=== PATIENT | male | born 1965 | race American Indian/Alaskan Native ===

== ENCOUNTER 2019-08-04 07:40 | Emergency (ER) | payer BC, MEDICAID, OTHER ==
[2019-08-04] MEDS ORDERED: MORPHINE 4 MG/1 ML INJ IV ONE (07:59)
[2019-08-04] MEDS ORDERED: SODIUM CHLORIDE 0.9% 1000 ML 1,000 ML IV ONE (07:59)
--- NOTE | 2019-08-04 08:00 | Emergency Department Report ---
HPI - General Chief Complaint: Abdominal Pain Time Seen by Provider: 08/04/19 07:54 - HPI HPI: 53-year-old -[place] male presents to the emergency department via EMS from home with complaint of lower abdominal pain, lower back pain, rectal bleeding that started about 10 PM last night. He says it is bright red blood. He tried a Percocet for her symptoms last night without much relief. He has a past medical history of hypertension and HIV. No recent travel or sick contacts at home. He denies any fever, chest pain, shortness of breath, diarrhea, constipation. ED Past Medical Hx - Past Medical History Previous Medical History?: Yes Hx Hypertension: Yes Hx HIV: Yes Additional medical history: MVP - Surgical History Past Surgical History?: No - Social History Smoking Status: Unknown if ever smoked Substance Use Type: None - Medications Home Medications: Home Medications Medication Instructions Recorded Confirmed Last Taken Type Amoxicillin/K Clav Tab [Augmentin 1 each PO ONCE #14 tablet 08/04/19 Unknown Rx 875MG TAB] ED Review of Systems ROS: Stated complaint: ABD/BACK PAIN RECTAL BLEEDING Other details as noted in HPI Comment: All other systems reviewed and negative Constitutional: denies: chills, fever Eyes: denies: eye pain, vision change ENT: denies: ear pain, throat pain Respiratory: denies: cough, shortness of breath Cardiovascular: denies: chest pain, palpitations Gastrointestinal: abdominal pain, hematochezia Genitourinary: denies: dysuria, discharge Musculoskeletal: back pain. denies: arthralgia Skin: denies: rash, lesions Neurological: denies: numbness, paresthesias Physical Exam - Physical Exam Vital Signs: Vital Signs 08/04/19 07:47 Temperature 98.4 F Pulse Rate 118 H Respiratory 20 Rate Blood Pressure 152/88 O2 Sat by Pulse 98 Oximetry Physical Exam: GENERAL: The patient is well-developed well-nourished. HENT: Normocephalic. Atraumatic. Patient has moist mucous membranes. EYES: Extraocular motions are intact. NECK: Supple. Trachea is midline. CHEST/LUNGS: Clear to auscultation. There is no respiratory distress noted. HEART/CARDIOVASCULAR: Regular. There is no tachycardia. ABDOMEN: Abdomen is soft. There is lower abdominal tenderness to palpation. No guarding. Patient has normal bowel sounds. There is no abdominal distention. SKIN: Skin is warm and dry. NEURO: The patient is awake, alert, and oriented. The patient is cooperative. Normal speech. MUSCULOSKELETAL: There is no tenderness or deformity. There is no limitation range of motion. There is no evidence of acute injury. BACK: No midline thoracic or lumbar tenderness to palpation, step-off or deformity. ED Course Vital Signs 08/04/19 07:47 Temperature 98.4 F Pulse Rate 118 H Respiratory 20 Rate Blood Pressure 152/88 O2 Sat by Pulse 98 Oximetry ED Medical Decision Making - Lab Data Result diagrams: 08/04/19 08:19 08/04/19 08:19 - Radiology Data Radiology results: report reviewed, image reviewed interpreted by me: Abdominal x-ray shows some air-fluid levels. CT abdomen pelvis w con INDICATION: Abd pain, rectal bleeding. TECHNIQUE: All CT scans at this location are performed using CT dose reduction for ALARA by means of automated exposure control. COMPARISON: None available. FINDINGS: Lung bases are clear of acute disease. Liver, gallbladder, spleen, pancreas and kidneys are negative. Both adrenals appear slightly hyperplastic, with no adrenal nodules. Abdominal aorta is normal in size. No adenopathy. Pelvis Normal appendix. Urinary bladder and distal ureters are negative. The rectum, sigmoid and descending colon are thick-walled and edematous, suggesting colitis. Right and transverse colon are unremarkable. No free fluid. No significant skeletal lesions. IMPRESSION: 1. Findings are consistent with distal colitis, extending from just past the splenic flexure to the distal rectum. Etiology is not known. - Medical Decision Making This patient presents to the emergency department with complaint of some lower abdominal pain, low back pain and some rectal bleeding since last night. His abdomen has some mild tenderness to palpation to the lower quadrants but otherwise the abdomen is nondistended, soft, and nontoxic in appearance. Abdominal x-ray shows some air-fluid levels. Labs have been mostly unremarkable except for some mild hypokalemia that was replaced with potassium chloride. CT scan of the abdomen pelvis with IV contrast shows distal colitis. Patient will be placed on Augmentin and has been given referrals for gastroenterology for outpatient follow-up regarding the abdominal pain and rectal bleeding. He will return to the emergency department with any worsening of his symptoms or any acute distress. Critical Care Time: No Critical care attestation.: If time is entered above; I have spent that time in minutes in the direct care of this critically ill patient, excluding procedure time. ED Disposition Clinical Impression: Colitis, Rectal bleeding Abdominal pain Qualifiers: Abdominal location: lower abdomen, unspecified Qualified Code(s): R10.30 - Lower abdominal pain, unspecified Disposition: TO HOME OR SELFCARE Is pt being admited?: No Condition: Stable Instructions: Rectal Bleeding (ED), Infectious Colitis (ED) Additional Instructions: Please follow-up with your primary care physician in the next few days. I have given you a referral for a local supervisor publications, Dr. Jamil Weeks, who is also part of a large gastroenterology group called [facility]. Please follow-up with someone from [facility] regarding your rec agnes bleeding as you may need a colonoscopy sometime in the near future. Return to the emergency department with any worsening of your symptoms or any acute distress. Take the antibiotics as prescribed. Prescriptions: Amoxicillin/K Clav Tab [Augmentin 875MG TAB] 1 each PO ONCE #14 tablet Referrals: DAVID WEEKS MD [Staff Physician] - 2-3 Days Forms: Work/School Release Form(ED) Time of Disposition: 10:18
--- NOTE | 2019-08-04 08:19 | XRay Report ---
ABDOMEN 2 VIEW(S) INDICATION / CLINICAL INFORMATION: Abd pain. COMPARISON: None available. FINDINGS: TUBES / LINES: None. BOWEL GAS PATTERN: No significant abnormality. FREE AIR / EXTRALUMINAL GAS: None seen. ADDITIONAL FINDINGS: No significant additional findings. IMPRESSION: No significant abnormality. Signer Name: Len Smith Jr, MD Signed: 08/04/2019 8:14 AM Workstation Name: [id number]
[2019-08-04 08:33] LABS: Hematocrit 45.7 % (35.5-45.6); Mean Corpuscular HGB Conc 35 % (32-34); Mean Corpuscular Volume 91 fl (84-94); Platelet Count 177 K/mm3 (140-440); Red Cell Distribution Width 13.6 % (13.2-15.2)
[2019-08-04 08:44] LABS: INR 1.03 (0.87-1.13)
[2019-08-04 09:24] LABS: Alanine Aminotransferase 18 units/L (7-56); Albumin 4.2 g/dL (3.9-5); BUN/Creatinine Ratio 14; Blood Urea Nitrogen 15 mg/dL (9-20); Hemolysis Index 18
[2019-08-04] MEDS ORDERED: POTASSIUM CHLORIDE ER 10 MEQ TAB PO NR (09:26)
[2019-08-04 09:37] LABS: Bilirubin,Direct < 0.2 mg/dL (0-0.2)
--- NOTE | 2019-08-04 10:11 | Cat Scan Report ---
CT abdomen pelvis w con INDICATION: Abd pain, rectal bleeding. TECHNIQUE: All CT scans at this location are performed using CT dose reduction for ALARA by means of automated e xposure control. COMPARISON: None available. FINDINGS: Lung bases are clear of acute disease. Liver, gallbladder, spleen, pancreas and kidneys are negative. Both adrenals appear slightly hyperplastic, with no adrenal nodules. Abdominal aorta is normal in si ze. No adenopathy. Pelvis Normal appendix. Urinary bladder and distal ureters are negative. The rectum, sigmoid and descending colon are thick-walled and edematous, suggesting colitis. Right an d transverse colon are unremarkable. No free fluid. No significant skeletal lesions. IMPRESSION: 1. Findings are consistent with distal colitis, extending from just past the splenic flexure to the d istal rectum. Etiology is not known. Signer Name: John Faith MD Signed: 08/04/2019 10:07 AM Workstation Name: [id number]
[2019-08-04] MEDS ORDERED: AMOXICILLIN/K CLAV 875/125MG TAB PO ONE (10:13)
[2019-08-04 10:59] VITALS: BP 150/86
[2019-08-04 11:11] LABS: Band Neutrophils # (Manual) 1.7 K/mm3; Basophils % (Manual) 0 % (0.0-1.8); Eosinophils % (Manual) 0 % (0.0-4.3); Platelet Estimate Consistent w Auto; RBC Morphology Normal; Total Cells Counted 100
== END 2019-08-04 11:02 | disposition home or self-care (01) ==
LOC: ED 07:40
DX: K52.9 Noninfective gastroenteritis and colitis, unspecified (principal); I10 Essential (primary) hypertension
CPT/HCPCS: 36415; 74019; 74177; 80048; 80076; 85007; 85025; 85610; 96361; 96374; 99285; J2270; J7030; Q9967